=== PATIENT | male | born 2000 | race Two or more races ===

== ENCOUNTER 2021-03-22 12:41 | Emergency (ER) | payer MEDICAID, OTHER ==
[~2021-03-22] VITALS: Ht 182.9 cm; Wt 130.2 kg
[2021-03-22] MEDS ORDERED: ASPirin 81 mg TAB PO ONE (12:45)
[2021-03-22 13:47] LABS: Basophils # (auto) 0.1 10 ^3/uL (0-0.2); Basophils % (auto) 0.9 % (0.0-2.0); Eosinophils # (auto) 0.2 10 ^3/uL (0-0.8); Eosinophils % (auto) 1.4 % (0.0-7.0); Hematocrit 46.3 % (41.0-53.0); Hemoglobin 16.3 g/dL (13.5-17.5); Lymphocytes # (auto) 2.4 10 ^3/uL (0.4-5.4); Lymphocytes % (auto) 20.6 % (10.0-50.0); Mean Corpuscular Hemoglobin 29.4 pg (28.0-32.0); Mean Corpuscular Hgb Conc. 35.3 g/dL (32.0-36.0); Mean Corpuscular Volume 83.4 fL (80.0-100.0); Monocytes # (auto) 0.6 10 ^3/uL (0-1.3); Monocytes % (auto) 5.2 % (0.0-12.0); Neutrophils # (auto) 8.3 10 ^3/uL (1.6-8.6); Neutrophils % (auto) 71.9 % (37.0-80.0); Nucleated Red Blood Cells % 0.2 %; Red Blood Cells 5.55 10^6/uL (4.5-5.90); Red Cell Distribution Width 13.5 % (11.8-14.3); White Blood Cell 11.5 10^3/uL (4.4-10.8)
[2021-03-22 14:16] LABS: Calcium 8.7 mg/dL (8.5-10.1); Chloride 109 mmol/L (98-107); Potassium 3.9 mmol/L (3.5-5.1); Sodium 141 mmol/L (136-145)
[2021-03-22 14:19] LABS: Alanine Aminotransferase 118 U/L (16-61); Albumin 3.8 g/dL (3.4-5.0); Anion Gap 5 (5-15); Aspartate Aminotransferase 58 U/L (15-37); Blood Urea Nitrogen 6 mg/dL (7-18); Carbon Dioxide 27 mmol/L (21-32); GFR African American 197 mL/min; GFR Non-African American 162 mL/min; Glucose 100 mg/dL (74-106)
[2021-03-22 14:24] LABS: Alkaline Phosphatase 122 U/L (45-117); Bilirubin, Total 0.5 mg/dL (0.2-1.0); Total Protein 8.2 g/dL (6.4-8.2)
[2021-03-22] MEDS ORDERED: LORazepam 0.5 MG TAB PO ONE (15:30)
[2021-03-22 15:50] VITALS: BP 117/56
[2021-03-22 15:57] LABS: Alcohol, Urine < 3.0 mg/dL (0-10); Amphetamine Screen, Urine NEGATIVE (NEGATIVE); Barbiturate Scree,Urine NEGATIVE (NEGATIVE); Benzodiazephine Screen, Urine NEGATIVE (NEGATIVE); Cannabinoid Screen, Urine NEGATIVE (NEGATIVE); Cocaine Screen, Urine NEGATIVE (NEGATIVE); Opiate Scree,Urine NEGATIVE (NEGATIVE); Phencyclidine Screen, Urine NEGATIVE (NEGATIVE)
== END 2021-03-22 16:09 | disposition home or self-care (01) ==
LOC: EDBD 12:41 → ER 12:41
DX: R00.2 Palpitations (principal); F41.9 Anxiety disorder, unspecified
CPT/HCPCS: 36415; 80053; 80307; 84484; 85025; 85049; 93005

== ENCOUNTER 2025-01-03 17:21 | Emergency (ER) | payer MEDICAID ==
[~2025-01-03] VITALS: Ht 180.3 cm; Wt 119.1 kg
[2025-01-03 17:32] VITALS: O2SAT 97
--- NOTE | 2025-01-03 18:53 | ED.PDOC ---
General HPI Comments 24-year-old male with no reported PMHx presents with a chief complaint of foreskin swelling x 3 days. Patient mentions that his foreskin is not able to be retracted and is swollen. Patient mentions that he went to [facility] and they told him he was okay and that it would go away on its own. Patient mentions that he went to his doctors clinic and was told to go back to the ER to be evaluated. Patient states that he is able to urinate fine and has no urinary symptoms at this time. No other symptoms or modifying factors present at this time. He states symptoms started after sexual activity. Chief Complaint: Urinary Time Seen by MD: 18:24 Reviewed notes: Medications, Allergies Allergies: Coded Allergies: NO KNOWN ALLERGIES (Unverified , 03/22/21) Information Source: Patient Mode of Arrival: Ambulatory Severity: Moderate Inability to void: None Timing: Days Duration: Since onset Has not urinated for: Minutes Prehospital treatment: None Onset: Spontaneous Symptoms: None History of: None Location: None Penile discharge: None Modifying factors: None Vital Signs Vital Signs Date Time Temp Pulse Resp B/P (MAP) Pulse Ox O2 Delivery O2 Flow Rate FiO2 01/03/25 19:59 96 22 Room Air* 0 21 01/03/25 19:58 98.9 124/74 (91) 98.9 01/03/25 17:32 97 Physical Exam General: Awake, alert and oriented. No acute distress. Skin: Skin in warm, dry and intact. Appropriate color for ethnicity. HEENT: The head is normocephalic and atraumatic. Conjunctivae are clear without exudates or hemorrhage. Neck: The neck is supple with normal range of motion. Cardiac: Heart rate and rhythm are normal. Respiratory: No signs of respiratory distress. : Swelling of the glans noted. No erythema, discharge, crusting, lesion, papule or ulceration. Foreskin is retracted and loose. Unable to retract over glans due to swelling. Extremities: Upper and lower extremities are atraumatic in appearance without deformity or edema. Neurological: The patient is awake, alert and oriented to person, place, and time with normal speech. Speech is clear. There is no facial asymmetry. Psychiatric: Appropriate mood and affect. Good judgement and insight. Review of Systems: REVIEW OF SYSTEMS: No fever, no chills, or fatigue HEENT: No sore throat, no earache, no congestion, no neck pain. Cardiac: No chest pain. No palpitations. Lungs: No shortness of breath, no cough. GI: No nausea, no vomiting, no diarrhea, no constipation, no abdominal pain : Swellingo of the glans. No discharge, No dysuria, frequency, or urgency. No hematuria. No penile pain Musculoskeletal: No joint pain , no joint swelling, no extremity edema. Skin: No rash, no itching. Neuro: No headache, no dizziness, no weakness Past Medical History PAST MEDICAL HISTORY: Denies Surgical History: Denies all surgeries Family History Family History: Reviewed,noncontributory to illness Social History Smoker: Non-Smoker Alcohol: Denies ETOH Use Drugs: Denies Drug Use Lives In: Home Was a procedure done? Was a procedure done?: No Differential Diagnosis Kidney stone (Female): N/A Urinary Problem (Male): Other (Fungal infection, bacterial infection, allergic reaction, trauma, STI, other) X-Ray, Labs, Meds, VS Vital Signs Date Time Temp Pulse Resp B/P (MAP) Pulse Ox O2 Delivery O2 Flow Rate FiO2 01/03/25 19:59 96 22 Room Air* 0 21 01/03/25 19:58 98.9 100 22 124/74 (91) 98.9 01/03/25 17:32 98.7 65 17 122/76 (91) 97 98.7 Lab Test 01/03/25 19:05 01/03/25 18:34 Range/Units White Blood Count 13.5 H 4.4-10.8 10^3/uL Red Blood Count 5.46 4.5-5.90 10^6/uL Hemoglobin 16.1 13.5-17.5 g/dL Hematocrit 47.2 41.0-53.0 % Mean Corpuscular Volume 86.5 80.0-100.0 fL Mean Corpuscular Hemoglobin 29.4 28.0-32.0 pg Mean Corpuscular Hemoglobin Concent 34.0 32.0-36.0 g/dL Red Cell Distribution Width 13.5 11.8-14.3 % Platelet Count 220 140-450 10^3/uL Mean Platelet Volume 10.2 6.9-10.8 fL Neutrophils (%) (Auto) 82.1 H 37.0-80.0 % Lymphocytes (%) (Auto) 12.5 10.0-50.0 % Monocytes (%) (Auto) 4.0 0.0-12.0 % Eosinophils (%) (Auto) 0.5 0.0-7.0 % Basophils (%) (Auto) 0.9 0.0-2.0 % Neutrophils # (Auto) 11.1 H 1.6-8.6 10 ^3/uL Lymphocytes # (Auto) 1.7 0.4-5.4 10 ^3/uL Monocytes # (Auto) 0.5 0-1.3 10 ^3/uL Eosinophils # (Auto) 0.1 0-0.8 10 ^3/uL Basophils # (Auto) 0.1 0-0.2 10 ^3/uL Nucleated Red Blood Cells 0.1 % Sodium Level 141 136-145 mmol/L Potassium Level 4.0 3.5-5.1 mmol/L Chloride Level 108 H 98-107 mmol/L Carbon Dioxide Level 24 20-31 mmol/L Anion Gap 9 5-15 Blood Urea Nitrogen 12 9-23 mg/dL Creatinine 0.82 0.700-1.30 mg/dL Glomerular Filtration Rate Calc 127 >90 mL/min BUN/Creatinine Ratio 14.6 10.0-20.0 Serum Glucose 110 H 74-106 mg/dL Calcium Level 10.2 8.7-10.4 mg/dL Total Bilirubin 0.5 0.2-1.0 mg/dL Aspartate Amino Transferase (AST) 15 13-40 U/L Alanine Aminotransferase (ALT) 21 7-40 U/L Alkaline Phosphatase 146 H 46-116 U/L B-Type Natriuretic Peptide 14.18 0-100 pg/mL Total Protein 7.7 5.7-8.2 g/dL Albumin 5.1 H 3.2-4.8 g/dL HIV (1&2) Antibody Negative Negative Urine Color Light-yellow Yellow Urine Clarity Clear Clear Urine pH 5.5 5.0-9.0 Urine Specific [place] 1.024 1.001-1.035 Urine Protein Negative Negative Urine Ketones Negative Negative Urine Blood Negative Negative /uL Urine Nitrite Negative Negative Urine Bilirubin Negative Negative Urine Urobilinogen Normal Negative mg/dL Urine Leukocyte Esterase Negative Negative /uL Urine RBC 1 0 - 3 /hpf Urine Microscopic WBC 1 0-3 /HPF Urine Squamous Epithelial Cells Few <5 /hpf Urine Bacteria None seen None Seen /hpf Urine Glucose Normal Normal mg/dL Chlamydia trachomatis (CHRISTOS) Pending Neisseria gonorrhoeae (CHRISTOS) Pending Current Medications Medications (Trade) Dose Ordered Sig/Donna Route Start Time Stop Time Status Last Admin Dexamethasone Sodium Phosphate (Decadron Injection) 10 mg ONCE ONCE IM 01/03/25 19:00 01/03/25 19:09 DC 01/03/25 19:54 Metronidazole (Flagyl Tablet) 2,000 mg ONCE ONCE PO 01/03/25 19:00 01/03/25 19:09 DC 01/03/25 19:53 Fluconazole (Diflucan Tablet) 150 mg ONCE ONCE PO 01/03/25 19:00 01/03/25 19:09 DC 01/03/25 19:54 Time of 1ST Reevaluation: 18:54 Reevaluation 1ST: Unchanged Patient Education/Counseling: Diagnosis, Treatment, Prognosis Family Education/Counseling: No Family Present Departure 1 Departure Time of Disposition: 19:23 Impression: Primary Impression: Balanitis Disposition: 01 HOME / SELF CARE / HOMELESS Condition: Stable Additional Instructions: ED DISCHARGE INSTRUCTIONS Instructions: Please read all instructions provided in this packet carefully. Although you have been discharged from the Emergency Department, this does not mean that you have a "clean bill of health". No definitive diagnosis for your symptoms has been made today. It is possible that you are in the process of developing a serious illness. This is why you must return to the ED without fail if any new or worsening symptoms (especially if your symptoms include increased pain, swelling, warmth, or redness, pus draining from the area, chest pain, trouble breathing, abdominal pain, fever, headache, confusion, trouble seeing, or trouble walking) Your test results are pending. If you do not receive a call in 2-3 days call the emergency department for your results. It is also very important that you see a primary care doctor within the next 2-3 days to follow up. If your symptoms have not improved you will need a referral to see a UROLOGIST. If you are unable to get an appointment, return to the ED for re-evaluation. Balanitis: Care Instructions Overview Balanitis is inflammation of the head of the penis. It is more common if the penis has not been circumcised. It often happens when the area under the foreskin isn't kept clean. If the foreskin isn't regularly pulled back and this area gently cleaned, bacteria or a fungus can grow. This can make the penis painful, red, swollen, and itchy. Pus or a milky liquid may leak from the area and cause a bad smell. Balanitis can also be caused by the chemicals in soap, condoms, or lubricants. It may also be caused by a reaction to medicines. Or it may be caused by a skin problem like eczema or by a sexually transmitted infection. You can prevent balanitis by keeping your penis clean. You also can help prevent it by not using products that cause irritation. Follow-up care is a cub[place] part of your treatment and safety. Be sure to make and go to all appointments, and call your doctor if you are having problems. It's also a good idea to know your test results and keep a list of the medicines you take. How can you care for yourself at home? Take a sitz bath 2-3 times daily to help with swelling Prepare the sitz bath by first cleaning your tub. Fill the tub with 3 to 4 inches of water. (The water should be kept very warm but, not so hot as to burn you.) Add cup of Epsom salt. Soak in the tub for up to 20 minutes, making sure your private area is covered with water, and adding more water as needed to keep it warm. Don't add shower gel, bubble bath, or any type of soap. Don't scrub or rub the area. Afterward, gently pat yourself dry using a soft towel. Keep your penis clean. If you have not been circumcised, gently pull the foreskin back to wash your penis with warm water. Make sure your penis is dry before you get dressed. If latex condoms irritate your penis, use another type of condom that isn't made of latex. Wash your underwear with mild soap. Rinse it well. If you work with harsh chemicals, wash your hands well before you go to the bathroom. When should you call for help? Call your doctor now or seek immediate medical care if: You have new or worse signs of infection, such as: Increased pain, swelling, warmth, or redness. Increased pus draining from the area. A fever. You are having trouble urinating. You are uncircumcised and you can't pull back the foreskin to uncover the head of the penis. You are uncircumcised and you can't return the foreskin to its normal position over the head of the penis. Watch closely for changes in your health, and be sure to contact your doctor if: You do not get better as expected. Credits for Balanitis: Care Instructions Current as of: January 26, 2024 Author: [employer] Staff Clinical Review Board All [employer] education is reviewed by a team that includes physicians, nurses, advanced practitioners, registered dieticians, and other healthcare professionals. Comments 24 year old male with balanitis, unknown cause, had Not been improving on it's own at home. Advised follow up with urology if symptoms have not improved in 2-3 days with treatment. Critical Care Note Critical Care Time?: No Stability Stability form required: No Heart Score Heart Score: Heart Score Response (Comments) Value History N/A 0 EKG N/A 0 Age N/A 0 Risk Factors N/A 0 Troponin N/A 0 Total 0 I personally scribed for FAVIAN ANGEL MD ([email or web address]) on 01/03/25 at 18:53. Electronically submitted by Angel Serrano ([email or web address]). I personally scribed for FAVIAN ANGEL MD ([email or web address]) on 01/03/25 at 19:00. Electronically submitted by Angel Serrano ([email or web address]). FAVIAN ANGEL MD Jan 03, 2025 18:53
[2025-01-03 19:19] LABS: Basophils # (auto) 0.1 10 ^3/uL (0-0.2); Basophils % (auto) 0.9 % (0.0-2.0); Eosinophils # (auto) 0.1 10 ^3/uL (0-0.8); Eosinophils % (auto) 0.5 % (0.0-7.0); Hematocrit 47.2 % (41.0-53.0); Hemoglobin 16.1 g/dL (13.5-17.5); Lymphocytes # (auto) 1.7 10 ^3/uL (0.4-5.4); Lymphocytes % (auto) 12.5 % (10.0-50.0); Mean Corpuscular Hemoglobin 29.4 pg (28.0-32.0); Mean Corpuscular Volume 86.5 fL (80.0-100.0); Monocytes # (auto) 0.5 10 ^3/uL (0-1.3); Neutrophils # (auto) 11.1 10 ^3/uL (1.6-8.6); Neutrophils % (auto) 82.1 % (37.0-80.0); Nucleated Red Blood Cells % 0.1 %; Platelet Count (auto) 220 10^3/uL (140-450); Red Blood Cells 5.46 10^6/uL (4.5-5.90); Red Cell Distribution Width 13.5 % (11.8-14.3); White Blood Cell 13.5 10^3/uL (4.4-10.8)
[2025-01-03 19:31] LABS: Urine Bacteria None Seen /hpf (None Seen)
[2025-01-03 19:34] LABS: Urine Blood Negative /uL (Negative); Urine Clarity Clear (Clear); Urine Color Light-Yellow (Yellow); Urine Protein, UAD Negative (Negative); Urine Specific Gravity 1.024 (1.001-1.035); Urine Squamous Epithelial Cell FEW /hpf (<5); Urine Urobilinogen Normal (Negative); Urine WBC 1 /HPF (0-3); Urine pH 5.5 (5.0-9.0)
[2025-01-03 19:41] LABS: Alanine Aminotransferase 21 U/L (7-40); Anion Gap 9 (5-15); Aspartate Aminotransferase 15 U/L (13-40); BUN/Creatinine Ratio 14.6 (10.0-20.0); Bilirubin, Total 0.5 mg/dL (0.2-1.0); Blood Urea Nitrogen 12 mg/dL (9-23); Calcium 10.2 mg/dL (8.7-10.4); Carbon Dioxide 24 mmol/L (20-31); Sodium 141 mmol/L (136-145); Total Protein 7.7 g/dL (5.7-8.2)
[2025-01-03 19:42] LABS: Albumin 5.1 g/dL (3.2-4.8); Alkaline Phosphatase 146 U/L (46-116); Chloride 108 mmol/L (98-107); Glucose 110 mg/dL (74-106)
[2025-01-03] MEDS: metroNIDAZOLE 500 MG TAB PO ONE (19:53)
[2025-01-03] MEDS: DexAMETHasone SOD PHOS 10MG/1ML VIAL INJ IM ONE (19:54)
[2025-01-03] MEDS: FLUCONAZOLE 100 MG TAB PO ONE (19:54)
[2025-01-03 19:58] VITALS: BP 124/74; TEMP 98.9
[2025-01-03 19:59] VITALS: PULSE 96; RESP 22
[2025-01-04 22:07] LABS: Chlamydia Trachomatis, NAA Negative (Negative); Neisseria gonorrhoeae, NAA Negative (Negative)
== END 2025-01-03 20:08 | disposition home or self-care (01) ==
LOC: ER 17:28
DX: N48.1 Balanitis (principal); R06.02 Shortness of breath
CPT/HCPCS: 36415; 80053; 81001; 83880; 85025; 86703; 87491; 87591; 96372; 99283; J1100

== ENCOUNTER 2025-06-23 19:01 | Emergency (ER) | payer MEDICAID ==
[~2025-06-23] VITALS: Ht 180.3 cm; Wt 125.7 kg
[2025-06-23] MEDS ORDERED: AUG875T PO (19:31)
--- NOTE | 2025-06-23 19:34 | ED.PDOC ---
History of Present Illness(SKN HPI Comments 24-year-old male presents to the ED chief complaint dog bite to left calf. Patient states proximally 1 hour ago prior to arrival was bit by his friend's dog. States friend's dog vaccines are all up-to-date. Patient states he is unsure refused a tetanus recently. Denies any pain, numbness, weakness, fever, chills, nausea, vomiting or any other concerns. Chief Complaint: Animal Bite Time Seen by MD: 19:05 History of Present Illness: Nurses Notes, Medications, Allergies Allergies: Coded Allergies: NO KNOWN ALLERGIES (Unverified , 03/22/21) Information Source: Patient Mode of Arrival: Ambulatory Past Medical History PAST MEDICAL HISTORY: Denies Surgical History: Denies all surgeries Family History Family History: Reviewed,noncontributory to illness Social History Smoker: Non-Smoker Alcohol: Denies ETOH Use Drugs: Denies Drug Use Lives In: Home All Other Systems: Reviewed and Negative (see hpi) Physical Exam General Appearance: No Apparent Distress, Normal HEENT: Pharynx Normal Neck: Full Range of Motion, Non-Tender Respiratory: Lungs Clear, No Respiratory Distress, Normal Breath Sounds Cardiovascular: No Murmur, Normal Peripheral Pulses, Regular Rate/Rhythm Breast Exam: Deferred Gastrointestinal: Non Tender, Soft Genitalia: Deferred Pelvic: Deferred Rectal: Deferred Extremities: No calf tenderness, Normal capillary refill, Normal range of penelope on, Non-tender, No pedal edema Musculoskeletal : Apperance: Normal Neurologic: Alert, No Motor Deficits, Normal Affect, Normal Mood, No Sensory Deficits Cerebellar Function: Normal Reflexes: NOT DONE Skin: Dry, Normal Color, Warm, Wounds (Scabbed over healed puncture wound to left mid calf no noted erythema or drainage no noted bleeding or streaking strength sensory motion intact positive pedal pulse) Lymphatic: No Adenopathy Was a procedure done? Was a procedure done?: No Differential Diagnosis (INTG) Differential Diagnosis: Abrasion, Cellulitis Differential Diagnosis: Abscess X-Ray, Labs, Meds, VS Vital Signs Date Time Temp Pulse Resp B/P (MAP) Pulse Ox O2 Delivery O2 Flow Rate FiO2 06/23/25 19:02 98.0 103 18 137/68 95 98.0 X-Ray, Labs, Meds, VS Comment script trial of ABX. TDAP given. Time of 1ST Reevaluation: 19:05 Reevaluation 1ST: Unchanged Time of 2ND Reevaluation: 19:32 Reevaluation 2ND: Improved Patient Education/Counseling: Diagnosis, Treatment, Need For Follow Up Family Education/Counseling: No Family Present SEPSIS Sepsis Screen Date sepsis recognized/suspect: Jun 23, 2025 Time Sepsis recognized/suspect: 1902 Recent Procedure: No On Antibiotic Therapy: No Respiratory Rate >20: No Heart Rate >90: Yes Temp<36 C (96.8 F) or >38.3 C: No SBP <90 or MAP <65 mmHG: No New Acute Mental Status Change: No Is the patient on CPAP, BIPAP,: No Physician Orders Tetanus [id number] (Boostrix (06/23/25 19:30) Vital Signs Date Time Temp Pulse Resp B/P (MAP) Pulse Ox O2 Delivery O2 Flow Rate FiO2 06/23/25 19:02 98.0 103 18 137/68 95 98.0 Departure 1 Departure Time of Disposition: 19:31 Impression: Primary Impression: Dog bite of calf Qualified Codes: S81.852A - Open bite, left lower leg, initial encounter; W54.0XXA - Bitten by dog, initial encounter Disposition: 01 HOME / SELF CARE / HOMELESS Condition: Stable e-Prescriptions Amoxicillin & Pot Clavulanate (AUGMENTIN TABLET) 875 Mg Tb 875 MG PO BID for 7 Days, #14 TAB Prov: DALI MCELROY 06/23/25 Discharged With: Self Critical Care Note Critical Care Time?: No Stability Stability form required: DALI Macedo Jun 23, 2025 19:34
[2025-06-23] MEDS: TETANUS-DIPTH-ACEL PERTUSSIS 0.5ML SYR Tdap IM ONE (19:56)
[2025-06-23 19:58] VITALS: BP 120/71; PULSE 88; RESP 19; TEMP 99.2; O2SAT 96
== END 2025-06-23 19:58 | disposition home or self-care (01) ==
LOC: ER 19:03
DX: S81.852A Open bite, left lower leg, initial encounter (principal); W54.0XXA Bitten by dog, initial encounter; Y93.89 Activity, other specified; Y92.89 Other specified places as the place of occurrence of the external cause; Y99.8 Other external cause status
CPT/HCPCS: 90471; 90715